=== PATIENT | female | born 1980 | race Caucasian/White ===

== ENCOUNTER 2018-01-06 17:07 | Emergency (ER) | payer BC ==
[2018-01-06] MEDS ORDERED: KETOROLAC TROMETHAMINE 60 MG/2 ML SDV IM ONE ×2 (18:11→21:00)
--- NOTE | 2018-01-06 18:11 | ER Document Report ---
ED Medical Screen (RME) - General Chief Complaint: Abdominal Pain Stated Complaint: ABDOMINAL PAIN Time Seen by Provider: 01/06/18 18:02 Notes: 37-year-old female patient with onset yesterday afternoon about 4 PM right lower quadrant abdominal pain. She also started her period yesterday 3 days late. There is been no bleeding today and that has never occurred with a period in the past. She did go to an urgent care last night and had a negative urine test. She got a shot of Toradol which gave her relief and she went home to bed. She woke up during the night with pain when the Toradol wore off. She did go to see her [employer] doctors today who did an ultrasound of her uterus and ovaries. They then sent her to the emergency room to rule out appendicitis. Brief exam shows some right lower quadrant tenderness. Right CVA percussion tenderness is present. There is no pain noted when the patient goes up on her toes and does a heel drop. There is no past history of kidney stones, but her father gets kidney stones frequently. There is been no fever. I have greeted and performed a rapid initial assessment of this patient. A comprehensive ED assessment and evaluation of the patient, analysis of test results and completion of the medical decision making process will be conducted by additional ED providers. TRAVEL OUTSIDE OF THE [place] IN LAST 30 DAYS: No - Related Data Allergies/Adverse Reactions: No Known Allergies Allergy (Unverified 02/15/12 14:22) Past Medical History - Social History Chew tobacco use (# tins/day): No Frequency of alcohol use: Occasional Drug Abuse: None Renal/ Medical History: Denies: Hx Peritoneal Dialysis Past Surgical History: Reports: Hx Section Physical Exam - Vital signs Vitals: Temp Pulse Resp BP Pulse Ox 98.0 F 94 16 145/97 H 98 01/06/18 17:11 01/06/18 17:11 01/06/18 17:11 01/06/18 17:11 01/06/18 17:11 Course - Vital Signs Vital signs: Temp Pulse Resp BP Pulse Ox 98.0 F 94 16 145/97 H 98 01/06/18 17:11 01/06/18 17:11 01/06/18 17:11 01/06/18 17:11 01/06/18 17:11 Doctor's Discharge - Discharge Referrals: LOCALMD,NO [Primary Care Provider] - Follow up as needed
[2018-01-06 18:38] LABS: ABSOLUTE MONOCYTES (AUTO) 0.7 10^3/uL (0.1-1.4); ABSOLUTE NEUT (AUTO) 5.8 10^3/uL (1.7-8.2); BASOPHILS % (AUTO) 0.5 % (0-2); EOSINOPHILS % (AUTO) 0.4 % (0-6); HEMATOCRIT 44.3 % (36.0-47.0); HEMOGLOBIN 15.3 g/dL (12.0-15.5); LYMPHOCYTES % (AUTO) 22.9 % (13-45); MEAN CORPUSCULAR HEMOGLOBIN 30.2 pg (27.0-33.4); MEAN CORPUSCULAR HGB CONC 34.5 g/dL (32.0-36.0); MEAN CORPUSCULAR VOLUME 88 fl (80-97); MONOCYTES % (AUTO) 8.6 % (3-13); PLATELET COUNT 269 10^3/uL (150-450); RED BLOOD COUNT 5.05 10^6/uL (3.72-5.28); RED CELL DISTRIBUTION WIDTH 13.2 % (11.5-14.0); SEGMENTED NEUTROPHILS % (AUTO) 67.6 % (42-78); TOTAL CELLS COUNTED % (AUTO) 100 %; WHITE BLOOD COUNT 8.6 10^3/uL (4.0-10.5)
[2018-01-06 18:47] LABS: APPEARANCE,URINE CLEAR; BILIRUBIN,URINE NEGATIVE (NEGATIVE); COLOR,URINE YELLOW; GLUCOSE, URINE NEGATIVE (NEGATIVE); KETONES,URINE TRACE mg/dL (NEGATIVE); LEUKOCYTE ESTERASE,URINE NEGATIVE (NEGATIVE); NITRITE,URINE NEGATIVE (NEGATIVE); PROTEIN,URINE NEGATIVE (NEGATIVE); URINE SPECIFIC GRAVITY 1.008; UROBILINOGEN,URINE NEGATIVE mg/dL (<2.0)
[2018-01-06 18:54] LABS: ALANINE AMINOTRANSFERASE 63 U/L (9-52); ALBUMIN 4.2 g/dL (3.5-5.0); ALKALINE PHOSPHATASE 97 U/L (38-126); ANION GAP 12 (5-19); ASPARTATE AMINO TRANSFERASE 49 U/L (14-36); BILIRUBIN,DIRECT 0.3 mg/dL (0.0-0.4); BILIRUBIN,TOTAL 0.9 mg/dL (0.2-1.3); BLOOD UREA NITROGEN 17 mg/dL (7-20); CALCIUM 9.6 mg/dL (8.4-10.2); CARBON DIOXIDE 25 mmol/L (22-30); CHLORIDE 106 mmol/L (98-107); GLUCOSE 91 mg/dL (75-110); POTASSIUM 4.5 mmol/L (3.6-5.0); SODIUM 143.2 mmol/L (137-145); TOTAL PROTEIN 6.9 g/dL (6.3-8.2)
[2018-01-06] MEDS ORDERED: NORMAL SALINE 1000 ML 1,000 ML IV ONE (20:51)
[2018-01-06] MEDS ORDERED: ONDANSETRON HCL INJ/PF 4 MG/2 ML SDV IV ONE (20:51)
[2018-01-06] MEDS ORDERED: KETOROLAC TROMETHAMINE INJ/PF 30 MG/1 ML SDV IV ONE (20:51)
--- NOTE | 2018-01-06 20:52 | ER Document Report ---
ED GI/ - General Chief Complaint: Abdominal Pain Stated Complaint: ABDOMINAL PAIN Time Seen by Provider: 01/06/18 18:02 Mode of Arrival: Ambulatory Information source: Patient TRAVEL OUTSIDE OF THE [place] IN LAST 30 DAYS: No - HPI Patient complains to provider of: Abdominal pain Onset: Yesterday Timing/Duration: Gradual, Persistent Quality of pain: Achy, Pressure Severity at maximum: Moderate Severity in ED: Moderate Pain Level: 3 Location: RLQ, Suprapubic Vaginal bleeding (Compared to normal period): Tobacco Sweeper Associated symptoms: Nausea Exacerbated by: Denies Relieved by: Denies Similar symptoms previously: No Recently seen / treated by doctor: Yes Notes: 01/07/18 00:01 Patient is a 37-year-old female presenting to the emergency room today for 2- day history of lower abdominal pain with nausea and decreased appetite, she was seen at urgent care yesterday, had a Toradol injection which made her feel better but her symptoms returned sometime in the middle of the night, she then went to [facility] today thinking that it may be related to her ovaries, reportedly she had a ultrasound performed in their office which showed normal ovaries and she was advised to come to the emergency room for further evaluation and treatment, patient reports a normal bowel movement today , denies dysuria or hematuria, she did start her period yesterday which was on time however her bleeding lasted for just 1 day and has ceased since then which is unusual for her, she denies any vaginal discharge - Related Data Allergies/Adverse Reactions: No Known Allergies Allergy (Unverified 02/15/12 14:22) Past Medical History - General Information source: Patient - Social History Smoking Status: Never Smoker Chew tobacco use (# tins/day): No Frequency of alcohol use: Occasional Drug Abuse: None Family History: None Patient has suicidal ideation: No Patient has homicidal ideation: No Renal/ Medical History: Denies: Hx Peritoneal Dialysis Past Surgical History: Reports: Hx Section Review of Systems - Review of Systems Constitutional: No symptoms reported EENT: No symptoms reported Cardiovascular: No symptoms reported Respiratory: No symptoms reported Gastrointestinal: See HPI Genitourinary: No symptoms reported Female Genitourinary: No symptoms reported Musculoskeletal: No symptoms reported Skin: No symptoms reported Hematologic/Lymphatic: No symptoms reported Neurological/Psychological: No symptoms reported -: Yes All other systems reviewed and negative Physical Exam - Vital signs Vitals: Temp Pulse Resp BP Pulse Ox 98.0 F 94 16 145/97 H 98 01/06/18 17:11 01/06/18 17:11 01/06/18 17:11 01/06/18 17:11 01/06/18 17:11 Interpretation: Normal - General General appearance: Appears well, Alert - HEENT Head: Normocephalic, Atraumatic Eyes: Normal Pupils: PERRL - Respiratory Respiratory status: No respiratory distress Chest status: Nontender Breath sounds: Normal Chest palpation: Normal - Cardiovascular Rhythm: Regular Heart sounds: Normal auscultation Murmur: No - Abdominal Inspection: Normal Distension: No distension Bowel sounds: Normal Tenderness: Tender - Right lower quadrant tenderness, suprapubic tenderness Organomegaly: No organomegaly - Genitourinary External exam: Normal Speculum exam: Normal Vaginal bleeding: Mild Bimanuel exam: Cervical motion tender - Mild - Back Back: Normal, Nontender - Extremities General upper extremity: Normal inspection, Nontender, Normal color, Normal ROM , Normal temperature General lower extremity: Normal inspection, Nontender, Normal color, Normal ROM , Normal temperature, Normal weight bearing. No: Thea's sign - Neurological Neuro grossly intact: Yes Cognition: Normal Orientation: AAOx4 Hannacroix Coma Scale Eye Opening: Spontaneous Hannacroix Coma Scale Verbal: Oriented Sebastian Coma Scale Motor: Obeys Commands Sebastian Coma Scale Total: 15 Speech: Normal Motor strength normal: LUE, RUE, LLE, RLE Sensory: Normal - Psychological Associated symptoms: Normal affect, Normal mood - Skin Skin Temperature: Warm Skin Moisture: Dry Skin Color: Normal Course - Re-evaluation Re-evalutation: 01/07/18 00:03 Lab and imaging findings discussed with patient at bedside, lab findings unremarkable except for very mild liver enzyme elevation, CT scan shows some inflammation in the pelvis, pelvic exam was performed which shows some trace dark brown blood in the vaginal vault, and mild uterine tenderness on exam, no abnormal discharge otherwise, no adnexal tenderness, patient was advised of her findings, recommended close follow-up with primary care or return if any worsening of symptoms over the next 2-3 days, patient acknowledges understanding and agreement with this plan - Vital Signs Vital signs: Temp Pulse Resp BP Pulse Ox 98.0 F 94 16 145/97 H 98 01/06/18 17:11 01/06/18 17:11 01/06/18 17:11 01/06/18 17:11 01/06/18 17:11 - Laboratory Result Diagrams: 01/06/18 18:25 01/06/18 18:25 Laboratory results interpreted by me: 01/06/18 01/06/18 18:00 18:25 AST 49 H ALT 63 H Urine Ketones TRACE H Urine Blood SMALL H - Diagnostic Test Radiology reviewed: Image reviewed, Reports reviewed Discharge - Discharge Clinical Impression: Abdominal pain Qualifiers: Abdominal location: lower abdomen, unspecified Qualified Code(s): R10.30 - Lower abdominal pain, unspecified Condition: Stable Disposition: HOME, SELF-CARE Instructions: Abdominal Pain ([facility]) Additional Instructions: Follow up with your primary care provider in one to 2 days. Return to the emergency room immediately if symptoms worsen or any additional concerns. Referrals: LOCALMD,NO [NO LOCAL MD] - Follow up as needed
--- NOTE | 2018-01-06 22:55 | RADIOLOGY REPORT (SQ) ---
EXAM DESCRIPTION: CT ABDOMEN PELVIS WITH IV CONTRAST COMPLETED DATE/TME: 01/06/2018 20:51 CLINICAL HISTORY: 37 years, Female, rlq pain COMPARISON: None. TECHNIQUE: 432 Images stored on PACS. All CT scanners at this facility use dose modulation, iterative reconstruction, and/or weight based dosing when appropriate to reduce radiation dose to as low as reasonably achievable (ALARA). [facility]: Dose Right [facility]: CareDose [facility]: Dose Right [facility]: Teradose 4D [facility]: Revision3 LIMITATIONS: None. FINDINGS: Limited evaluation of the lung bases is unremarkable. Osseous structures are grossly intact. Fatty infiltrative change to the liver. The spleen, adrenal glands, pancreas is unremarkable. The gallbladder is present. There is no definitive hydronephrosis, however there is nonspecific perinephric inflammatory changes bilaterally which could reflect an inflammatory or infectious process. Correlate with renal function and urinalysis. No evidence for bowel obstruction. There are also some minor inflammatory changes surrounding the uterus within the pelvis. Correlate for the possibility of pelvic inflammatory disease. Normal appendix. IMPRESSION: Mild perinephric inflammatory changes are suggested bilaterally. An inflammatory or infectious process should be considered. Correlate with renal function and urinalysis. There is also minor inflammatory changes within the pelvis. Correlate for the possibility of pelvic inflammatory disease. Normal appendix. Fatty infiltrative change to the liver. TECHNICAL DOCUMENTATION: Quality ID # [id number]: Final reports with documentation of one or more dose reduction techniques (e.g., Automated exposure control, adjustment of the mA and/or kV according to patient size, use of iterative reconstruction technique) 2010 [employer]- All Rights Reserved
[2018-01-07 00:03] VITALS: BP 139/88
[2018-01-07 00:04] LABS: BACTERIA (WET MOUNT) 3+ BACTERIA SEEN; EPITHELIALS (WET MOUNT) 3+ EPITHELIALS SEEN; RBCS (WET MOUNT) RARE RBCS SEEN; T.VAGINALIS (WET MOUNT) NO TRICHOMONAS SEEN; WBCS (WET MOUNT) NO WBCS SEEN; YEAST (WET MOUNT) NO YEAST SEEN
[2018-01-07 01:25] LABS: CHLAM PCR NOT DETECTED (NOT DETECT); GON PCR NOT DETECTED (NOT DETECT)
== END 2018-01-07 00:05 | disposition home or self-care (01) ==
LOC: ER 17:07
DX: N73.9 Female pelvic inflammatory disease, unspecified (principal); R10.31 Right lower quadrant pain; R11.0 Nausea; R63.0 Anorexia; R74.8 Abnormal levels of other serum enzymes
CPT/HCPCS: 99284; 96361; 96374; 96375; 36415; 87210; 84703; 85025; 80053; 81001; 87491; 87591; 74177; J1885; J2405; J7030

== ENCOUNTER 2019-11-12 05:25 | Day surgery (SDC) | payer BC, OTHER ==
[2019-11-06 12:28] LABS: HEMATOCRIT 46.6 % (36.0-47.0); HEMOGLOBIN 15.8 g/dL (12.0-15.5); MEAN CORPUSCULAR HEMOGLOBIN 29.7 pg (27.0-33.4); MEAN CORPUSCULAR VOLUME 87 fl (80-97); PLATELET COUNT 270 10^3/uL (150-450); RED BLOOD COUNT 5.33 10^6/uL (3.72-5.28); WHITE BLOOD COUNT 8.4 10^3/uL (4.0-10.5)
--- NOTE | 2019-11-06 12:28 | RADIOLOGY REPORT (SQ) ---
EXAM DESCRIPTION: CHEST PA/LATERAL IMAGES COMPLETED DATE/TIME: 11/06/2019 11:24 am REASON FOR STUDY: PRE-OP COMPARISON: None. EXAM PARAMETERS: NUMBER OF VIEWS: two views TECHNIQUE: Digital Frontal and Lateral radiographic views of the chest acquired. RADIATION DOSE: NA LIMITATIONS: none FINDINGS: LUNGS AND PLEURA: No opacities, masses or pneumothorax. No pleural effusion. MEDIASTINUM AND HILAR STRUCTURES: No masses or contour abnormalities. HEART AND VASCULAR STRUCTURES: Heart normal size. No evidence for failure. BONES: No acute findings. HARDWARE: None in the chest. OTHER: No other significant finding. IMPRESSION: NO SIGNIFICANT RADIOGRAPHIC FINDING IN THE CHEST. TECHNICAL DOCUMENTATION: JOB ID: [id number] 2010 [employer]- All Rights Reserved Reading location - IP/workstation name: [email or web address]
[2019-11-06 12:42] LABS: APPEARANCE,URINE SLIGHTLY-CLOUDY; BILIRUBIN,URINE NEGATIVE (NEGATIVE); COLOR,URINE YELLOW; GLUCOSE, URINE NEGATIVE (NEGATIVE); KETONES,URINE NEGATIVE (NEGATIVE); LEUKOCYTE ESTERASE,URINE NEGATIVE (NEGATIVE); NITRITE,URINE NEGATIVE (NEGATIVE); PROTEIN,URINE NEGATIVE (NEGATIVE); URINE SPECIFIC GRAVITY 1.021; UROBILINOGEN,URINE NEGATIVE mg/dL (<2.0)
[2019-11-06 12:49] LABS: ALBUMIN 4.8 g/dL (3.5-5.0); ALKALINE PHOSPHATASE 105 U/L (38-126); ANION GAP 14 (5-19); ASPARTATE AMINO TRANSFERASE 50 U/L (14-36); BILIRUBIN,DIRECT 0.3 mg/dL (0.0-0.4); BILIRUBIN,TOTAL 0.6 mg/dL (0.2-1.3); BLOOD UREA NITROGEN 15 mg/dL (7-20); CALCIUM 9.8 mg/dL (8.4-10.2); CARBON DIOXIDE 21 mmol/L (22-30); CHLORIDE 105 mmol/L (98-107); GLUCOSE 87 mg/dL (75-110); POTASSIUM 4.7 mmol/L (3.6-5.0); TOTAL PROTEIN 7.6 g/dL (6.3-8.2)
--- NOTE | 2019-11-06 21:37 | EKG REPORT ---
SEVERITY:- NORMAL ECG - SINUS RHYTHM : Confirmed by: Maria Guadalupe Edward MD 06-Nov-2019 21:36:35
[~2019-11-12 05:25] MED LIST: CEFAZOLIN 1 GM/D5W RTU 1 GM/50 ML RTUPB IV ONE; CEFAZOLIN 1 GM/D5W RTU 1 GM/50 ML RTUPB IV PRN; LIDOCAINE 0.5% INJ-PF (5 MG/ML) 50 ML SDV SUBCUT PRN
[2019-11-12] MEDS ORDERED: FENTANYL CITRATE INJ/PF 250 MCG/5 ML AMPULE ONE (06:29)
[2019-11-12] MEDS ORDERED: FENTANYL CITRATE INJ/PF 100 MCG/2 ML AMPUL ONE (06:29)
[2019-11-12] MEDS ORDERED: MIDAZOLAM 2 MG/2 ML INJ ONE (06:29)
[2019-11-12] MEDS ORDERED: PROPOFOL INJ 200 MG/20 ML VIAL IV ONE (06:30)
[2019-11-12] MEDS ORDERED: MORPHINE SULFATE 10 MG/ML INJ ONE (06:30)
[2019-11-12] MEDS ORDERED: FENTANYL CITRATE INJ/PF 100 MCG/2 ML AMPUL IV PRN ×3 (08:29)
[2019-11-12] MEDS ORDERED: PROMETHAZINE HCL INJ 25 MG/1 ML VIAL IV PRN ×3 (08:29→10:10)
[2019-11-12] MEDS ORDERED: OXYCODONE-ACETAMINOPHEN 5-325 MG TABLET PO PRN ×4 (08:29→10:10)
[2019-11-12] MEDS ORDERED: MORPHINE SULFATE 10 MG/ML INJ IV PRN ×2 (08:29→10:10)
[2019-11-12] MEDS ORDERED: DIPHENHYDRAMINE HCL 50 MG/ML VIAL IV PRN (08:29)
[2019-11-12] MEDS ORDERED: MEPERIDINE HCL/PF INJ 25 MG/1 ML DISP.SYRIN IV PRN (08:29)
[2019-11-12] MEDS ORDERED: SUGAMMADEX SODIUM 200 MG/2 ML SDV IV ONE (09:51)
[2019-11-12] MEDS ORDERED: MEASLES,MUMPS&RUBELLA VACC/PF 0.5 ML VIAL SUBCUT PRN (10:10)
[2019-11-12] MEDS ORDERED: DIPH/PERTUSS(ACELL)/TETANUS VAC/PF 0.5 ML SYR (>=10YO) IM PRN (10:10)
[2019-11-12] MEDS ORDERED: ACETAMINOPHEN 1,000 MG/100 ML RTUPB IV PRN (10:10)
[2019-11-12] MEDS ORDERED: SIMETHICONE 80 MG TAB.CHEW PO PRN (10:10)
[2019-11-12] MEDS ORDERED: ACETAMINOPHEN 325 MG TABLET PO PRN (10:10)
[2019-11-12] MEDS ORDERED: KETOROLAC TROMETHAMINE INJ/PF 30 MG/1 ML SDV ONE (10:18)
[2019-11-12] MEDS: FENTANYL CITRATE INJ/PF 100 MCG/2 ML AMPUL ONE ×2 (10:19→10:24)
--- NOTE | 2019-11-12 10:30 | Operative Report ---
Operative Report DATE OF SURGERY: 11/12/19 PREOPERATIVE DIAGNOSIS: Abnormal uterine bleeding, chronic pelvic pain, pelvic adhesive disease POSTOPERATIVE DIAGNOSIS: Abnormal uterine bleeding, chronic pelvic pain, pelvic adhesive disease, endometriosis, left ovarian endometrioma OPERATION: Assisted total laparoscopic hysterectomy, left salpingo-oophorectomy, right salpingectomy, lysis of adhesions SURGEON: BRETT SHUKLA 1ST PLATE GRINDER: SABINO BALDWIN 2ND Elastic Assembler: EMELY YODER ANESTHESIA: GA TISSUE REMOVED OR ALTERED: Uterus, cervix, left adnexa, right fallopian tube COMPLICATIONS: None none ESTIMATED BLOOD LOSS: 300 cc INTRAOPERATIVE FINDINGS: Cervix is very high in the vaginal canal difficult to grasp for manipulator placement, dense adhesions of the uterus to the anterior abdominal wall adhesions of the bladder to the lower uterine segment dense adhe sions of the left adnexa to the pelvic sidewall, left chocolate cyst consistent with an endometrioma, several gunpowder lesions in the pelvic sidewall consistent with endometriosis, right ovary was lightly adhesed to the posterior uterus PROCEDURE: Patient was taken to the operating room prepared and draped in normal sterile fashion in dorsolithotomy position. Under sterile conditions a Nicole catheter was placed to gravity. Speculum was placed into the vagina and the cervix was located with a great deal of difficulty. Cervix was superior and flexed anterior. Once the cervix was located the cervix was grasped with a single tooth tenaculum. Dilation proved to be very diffucult but I was able to place the medium v care manipulator into cervixcal canal and assured that the v care cup was covering the cervix. gloves were changed and attention was turned to the upper portion of the case. A 2-1/2 cm umbilical skin incision was made 11 blade and this was carried through to the underlying layer of fascia with the same 11 blade. It was grasped to Janna's acted with Baker's. Peritoneal cavity was entered bluntly. A GelPort was placed in a normal fashion the camera port and air seal in the appropriate locations. Mejia was then inflated with approximately 2 L of CO2 gas. The camera was then introduced into the peritoneal cavity through the camera port and the patient was placed in steep Trendelenburg. The above findings were noted. Under direct visualization two 5 mm ports were placed approximately 10 cm on either side of the umbilicus. Atraumatic grasper was introduced and the omental adhesions were taken down bluntly from the anterior abdominal wall. the robot was then docked with the vessel sealer placed on the patient's left and the monopolar scissors placed placed on the patient's right. I then unscrubbed and set at the robotic console beginning with the lesions of the lower uterine segment to the descending colon were taken down with sharp dissection of the monopolar scissors . The left adnexa was determined to contain a large chocolate endometrioma. Due to the level of pelvic adhesions to the anterior to the pelvic sidewall and the pres ence of the endometrioma it was decided that this ovary should be removed for patient's benefit . The adhesions of the ovary to the pelvic sidewall were teased away with monopolar scissors coagulating as needed for hemostasis taking care to stay out of the retroperitoneal space . IP ligament was freed and the ovary was transected at the IP ligament utilizing the vessel sealer. The uterine artery was skeletonized using sharp and blunt dissection and ligated using the vessel sealer down to the level of the external cervical os. The adhesions of the uterus to the anterior abdominal wall were then transected utilizing the monopolar scissors staying high and away from bladder flap . Turned our attention to the right adnexa . The fallopian tube on this side was easily located and elevated and transected from the right ovary following the mesosalpinx and using monopolar scissors. Fallopian tube was ligated at the uterine fundus using the vessel sealer. the utero-ovarian ligament was t ransected using the vessel sealer. The adhesions of the right ovary to the posterior aspect of the uterine body were transected using monopolar scissors and blunt dissection. the Uterine artery was then transected using the vessel sealer and skeletonized using blunt dissection. The vessel sealer was again used to completely transect the uterine artery down to the level of the external cervical os. The bladder flap was completed using similar sharp and blunt dissection. These adhesions were taken down with the monopolar scissors and blunt dissection until the V care cup could be located through the vaginal mucosa. Then turned our attention to the left adnexa once more and continued skeletonization of the uterine artery until the tissue was dissected away and the need mucosa revealed the uterine manipulator. once the bladder was felt to be adequately away from the lower uterine segment, the colpotomy was begun on the anterior aspect of the cervix following the outline of the V care cup mucosa. The cup was followed in a circumferential fashion completely around the cervix estimate was completely freed. The specimen was then removed through the vaginal defect. The instruments were then changed to a Stanley needle motor driver and pro-grasp. AV lock needle was introduced through the assistance port. The V lock needle was used to close the vaginal cuff and hemostasis. The needle was then r emoved through the assistance port. The peritoneal cavity was carefully inspected there was no signs of hydroureter however uterine peristalsis was not noted through the tissues due to the level of the adhesive disease of the patient. There was a small amount of capillary oozing noted at the level of the left IP ligament. Carefully coagulated with monopolar scissors again taking care to stay out of the retroperitoneal space. Once we had the oozing somewhat under control there was FloSeal placed in this area for additional hemostasis prophylaxis. the robot was then undocked. The fascia was closed at the umbilical skin incision with 0 Vicryl 3 skin incisions were closed using 4-0 Vicryl. Sponge lap and needle counts were correct x2 and the patient was taken to recovery in stable condition.
[2019-11-12] MEDS ORDERED: OXYCODONE-ACETAMINOPHEN 5-325 MG TABLET ONE (10:39)
[2019-11-12] MEDS ORDERED: NORMAL SALINE INJ/PF 0.9% 10 ML SDV ONE (11:39)
[2019-11-12] MEDS ORDERED: PHENYLEPHRINE HCL INJ/PF 10 MG/1 ML SDV ONE (11:39)
[2019-11-12] MEDS ORDERED: ROCURONIUM BROMIDE INJ 50 MG/5 ML VIAL IV ONE (11:39)
[2019-11-12] MEDS ORDERED: DEXAMETHASONE SOD PHOSPHATE INJ 4 MG/1 ML VIAL ONE (11:39)
[2019-11-12] MEDS ORDERED: ONDANSETRON HCL INJ/PF 4 MG/2 ML SDV ONE (11:39)
[2019-11-12] MEDS ORDERED: ACETAMINOPHEN 1,000 MG/100 ML RTUPB IV ONE (14:48)
[2019-11-12] MEDS: RINGERS SOLUTION,LACTATED 1,000 ML IV PRN (14:55)
[2019-11-12] MEDS ORDERED: DOCUSATE SODIUM 100 MG CAPSULE PO SCH (18:00)
[2019-11-12] MEDS: KETOROLAC TROMETHAMINE INJ/PF 30 MG/1 ML SDV IV SCH (18:00)
[2019-11-13] MEDS: KETOROLAC TROMETHAMINE INJ/PF 30 MG/1 ML SDV IV SCH (01:46)
[2019-11-13] MEDS: RINGERS SOLUTION,LACTATED 1,000 ML IV PRN (01:50)
[2019-11-13 06:45] LABS: HEMATOCRIT 40.1 % (36.0-47.0); HEMOGLOBIN 13.9 g/dL (12.0-15.5); MEAN CORPUSCULAR HEMOGLOBIN 30.3 pg (27.0-33.4); MEAN CORPUSCULAR HGB CONC 34.7 g/dL (32.0-36.0); MEAN CORPUSCULAR VOLUME 87 fl (80-97); PLATELET COUNT 238 10^3/uL (150-450); RED BLOOD COUNT 4.59 10^6/uL (3.72-5.28); RED CELL DISTRIBUTION WIDTH 13.8 % (11.5-14.0); WHITE BLOOD COUNT 12.3 10^3/uL (4.0-10.5)
--- NOTE | 2019-11-13 07:38 | PDOC DISCHARGE SUMMARY ---
Impression - Admit/DC Date/PCP Admission Date/Primary Care Provider: JESUS CHASE DO Discharge Date: 11/13/19 - Discharge Diagnosis (1) Endometriosis determined by laparoscopy Is this a current diagnosis for this admission?: Yes (2) Abnormal uterine bleeding Is this a current diagnosis for this admission?: Yes (3) Pelvic adhesive disease Is this a current diagnosis for this admission?: Yes (4) Pelvic pain Is this a current diagnosis for this admission?: Yes - Assessment Summary: patient underwent an RATLH w/ b/l salpingectomy with significant lysis of adhesions. She has had an unremarkable post operative course. She is voiding normally and tolerating a regular diet. - Additional Information Resuscitation Status: Full Code Discharge Diet: As Tolerated Discharge Activity: Balance Activity w/Rest, No Driving, No Lifting Over 10 Pounds, No Lifting/Push/Pulling, Pelvic Rest, No tub bath, Walk Frequently Referrals: JESUS CHASE DO [Primary Care Provider] - Prescriptions: Oxycodone HCl/Acetaminophen [Percocet 5-325 mg Tablet] 1 tab PO Q4HP PRN #30 tablet PRN Reason: Docusate Sodium [Colace 100 mg Capsule] 100 mg PO BID #60 capsule Ibuprofen [Motrin 800 mg Tablet] 800 mg PO Q8H #60 tablet Home Medications: Citalopram Hydrobromide [Celexa 20 Mg Tablet] 20 mg PO DAILY 11/22/12 Lisinopril [Prinivil] 10 mg PO ASDIR PRN 11/06/19 Metoprolol Tartrate [Lopressor 50 mg Tablet] 50 mg PO DAILY 11/06/19 Docusate Sodium [Colace 100 mg Capsule] 100 mg PO BID #60 capsule 11/13/19 Ibuprofen [Motrin 800 mg Tablet] 800 mg PO Q8H #60 tablet 11/13/19 Oxycodone HCl/Acetaminophen [Percocet 5-325 mg Tablet] 1 tab PO Q4HP PRN #30 tablet 11/13/19 History of Present Illiness History of Present Illness: FAIZA MIX is a 39 year old female Physical Exam - Physical Exam Vital Signs: Temp Pulse Resp BP Pulse Ox 98.2 F 83 16 128/71 H 93 11/12/19 23:48 11/12/19 23:48 11/12/19 23:48 11/12/19 23:48 11/12/19 23:48 Intake & Output 11/12/19 11/13/19 11/14/19 06:59 06:59 06:59 Intake Total 0 3300 Output Total 750 Balance 0 2550 Weight 102.51 kg Results Laboratory Results: WBC 12.3 10^3/uL (4.0-10.5) H 11/13/19 06:32 RBC 4.59 10^6/uL (3.72-5.28) 11/13/19 06:32 Hgb 13.9 g/dL (12.0-15.5) 11/13/19 06:32 Hct 40.1 % (36.0-47.0) 11/13/19 06:32 MCV 87 fl (80-97) 11/13/19 06:32 MCH 30.3 pg (27.0-33.4) 11/13/19 06:32 MCHC 34.7 g/dL (32.0-36.0) 11/13/19 06:32 RDW 13.8 % (11.5-14.0) 11/13/19 06:32 Plt Count 238 10^3/uL (150-450) 11/13/19 06:32 Sodium 139.5 mmol/L (137-145) 11/06/19 11:03 Potassium 4.7 mmol/L (3.6-5.0) 11/06/19 11:03 Chloride 105 mmol/L (98-107) 11/06/19 11:03 Carbon Dioxide 21 mmol/L (22-30) L 11/06/19 11:03 Anion Gap 14 (5-19) 11/06/19 11:03 BUN 15 mg/dL (7-20) 11/06/19 11:03 Creatinine 0.63 mg/dL (0.52-1.25) 11/06/19 11:03 Est GFR ( Amer) > 60 (>60) 11/06/19 11:03 Est GFR (MDRD) Non-Af > 60 (>60) 11/06/19 11:03 Glucose 87 mg/dL (75-110) 11/06/19 11:03 Calcium 9.8 mg/dL (8.4-10.2) 11/06/19 11:03 Total Bilirubin 0.6 mg/dL (0.2-1.3) 11/06/19 11:03 Direct Bilirubin 0.3 mg/dL (0.0-0.4) 11/06/19 11:03 Neonat Total Bilirubin Not Reportable 11/06/19 11:03 Neonat Direct Bilirubin Not Reportable 11/06/19 11:03 Neonat Indirect Bili Not Reportable 11/06/19 11:03 AST 50 U/L (14-36) H 11/06/19 11:03 ALT 85 U/L (<35) H 11/06/19 11:03 Alkaline Phosphatase 105 U/L (38-126) 11/06/19 11:03 Total Protein 7.6 g/dL (6.3-8.2) 11/06/19 11:03 Albumin 4.8 g/dL (3.5-5.0) 11/06/19 11:03 Urine Color YELLOW 11/06/19 10:50 Urine Appearance SLIGHTLY-CLOUDY 11/06/19 10:50 Urine pH 6.0 (5.0-9.0) 11/06/19 10:50 Ur Specific [place] 1.021 11/06/19 10:50 Urine Protein NEGATIVE mg/dL (NEGATIVE) 11/06/19 10:50 Urine Glucose (UA) NEGATIVE mg/dL (NEGATIVE) 11/06/19 10:50 Urine Ketones NEGATIVE mg/dL (NEGATIVE) 11/06/19 10:50 Urine Blood NEGATIVE (NEGATIVE) 11/06/19 10:50 Urine Nitrite NEGATIVE (NEGATIVE) 11/06/19 10:50 Urine Bilirubin NEGATIVE (NEGATIVE) 11/06/19 10:50 Urine Urobilinogen NEGATIVE mg/dL (<2.0) 11/06/19 10:50 Ur Leukocyte Esterase NEGATIVE (NEGATIVE) 11/06/19 10:50 Urine WBC (Auto) 1 /HPF 11/06/19 10:50 Urine RBC (Auto) 0 /HPF 11/06/19 10:50 Urine Bacteria (Auto) TRACE /HPF 11/06/19 10:50 Squamous Epi Cells Auto 5 /HPF 11/06/19 10:50 Urine Mucus (Auto) RARE /LPF 11/06/19 10:50 Urine Ascorbic Acid NEGATIVE (NEGATIVE) 11/06/19 10:50 Urine HCG, Qual NEGATIVE (NEGATIVE) 11/12/19 05:30 COVID-19 Source See comment 11/06/19 10:53 COVID-19 (MELANIA) Not Detected (Not Detect) 11/06/19 10:53 Blood Type O NEGATIVE 11/06/19 11:03 Antibody Screen NEGATIVE 11/06/19 11:03 Impressions: Chest X-Ray 11/06/19 00:00 IMPRESSION: NO SIGNIFICANT RADIOGRAPHIC FINDING IN THE CHEST. Stroke Is this a Stroke Patient?: No Acute Heart Failure Is this a Heart Failure Patient?: No
[2019-11-13 08:10] VITALS: BP 143/83
[2019-11-13] MEDS ORDERED: IBUPROFEN 800 MG TABLET PO SCH (12:00)
[2019-11-14] MEDS ORDERED: INFLUENZA QUAD (6MOS+) 2020-21 VAC 0.5 ML SYR IM ONE (08:00)
== END 2019-11-13 09:42 | disposition home or self-care (01) ==
LOC: OROUT 05:25 → 2N 12:19 → OROUT 11-13 09:42
PROVIDERS: ATTEND Obstetrics & Gynecology
DX: N93.8 Other specified abnormal uterine and vaginal bleeding (principal); N80.2 Endometriosis of fallopian tube; N73.6 Female pelvic peritoneal adhesions (postinfective); N72 Inflammatory disease of cervix uteri; N87.9 Dysplasia of cervix uteri, unspecified; N83.12 Corpus luteum cyst of left ovary; N80.1 Endometriosis of ovary; D25.2 Subserosal leiomyoma of uterus; G89.29 Other chronic pain; R10.2 Pelvic and perineal pain; N92.1 Excessive and frequent menstruation with irregular cycle; I10 Essential (primary) hypertension; F32.9 Major depressive disorder, single episode, unspecified; F17.210 Nicotine dependence, cigarettes, uncomplicated; Z03.818 Encounter for observation for suspected exposure to other biological agents ruled out
CPT/HCPCS: 93005; 86900; 86901; 36415 ×2; 86850; 85027 ×2; 87635; 81025; 80053; 81001; 88307 ×2; 71046; 94799; 93010; 00840; 58571; 49329; C1758; A4649; J2250; J0690; J3490 ×3; J1100; J3010 ×2; J1885 ×2; J2270; J2370; J2405; J7120 ×2; J2704; J0131; C9803; 840

== ENCOUNTER 2020-01-05 15:54 | Emergency (ER) | payer OTHER ==
[2020-01-05 16:16] VITALS: BP 131/88
[2020-01-05] MEDS ORDERED: HYDROCODONE/ACETAMINOPHEN 10-325 MG TABLET PO ONE (17:32)
[2020-01-05] MEDS ORDERED: DIPH/PERTUSS(ACELL)/TETANUS VAC/PF 0.5 ML SYR (>=10YO) IM ONE (17:34)
--- NOTE | 2020-01-05 17:39 | ER Document Report ---
HPI - HPI Time Seen by Provider: 01/05/20 17:23 Pain Level: 5 Notes: 39-year-old female presents to the emergency room today by private vehicle for bilateral ankle pain after she fell out of the car because it was on a curb, denies injuring her wrist hands or any other part of her body except for her ankles. Denies head trauma or change in level consciousness. Reports pain is 5 out of 5. She does have some abrasions to her left ankle and right ankle. Unsure of her last tetanus. Bleeding is controlled. Unable to bear any weight to bilateral lower extremities. Reports she does have a wheelchair at home. States that she was teaching her daughter how to drive in her driveway when this happened. Denies any prior history of ankle sprains or fractures. Denies any numbness or tingling down bilateral lower extremities, weakness. Denies any chest pain, shortness of breath, nausea vomiting diarrhea. - CONSTITUTIONAL Constitutional: DENIES: Fever, Chills - REPRODUCTIVE LMP: hysterectomy Reproductive: DENIES: : - MUSCULOSKELETAL Musculoskeletal: REPORTS: Extremity pain - DERM Skin Color: Normal Past Medical History - General Information source: Patient - Social History Smoking Status: Current Every Day Smoker Chew tobacco use (# tins/day): No Frequency of alcohol use: Occasional Drug Abuse: None Family History: None Patient has homicidal ideation: No - Past Medical History Cardiac Medical History: Reports: Hx Hypertension - on meds Denies: Hx Coronary Artery Disease, Hx Heart Attack Pulmonary Medical History: Denies: Hx Asthma, Hx Bronchitis, Hx COPD, Hx Pneumonia Neurological Medical History: Denies: Hx Cerebrovascular Accident, Hx Seizures Renal/ Medical History: Denies: Hx Peritoneal Dialysis Musculoskeletal Medical History: Denies Hx Arthritis Psychiatric Medical History: Reports: Hx Depression Past Surgical History: Reports: Hx Section - x2, Hx Hysterectomy, Hx Tonsillectomy - Immunizations Hx Diphtheria, Pertussis, Tetanus Vaccination: Yes Vertical Provider Document - CONSTITUTIONAL Agree With Documented VS: Yes Exam Limitations: No Limitations General Appearance: WD/WN Notes: MEDICATIONS: I agree with the patient medications as charted by the RN. ALLERGIES: I agree with the allergies as charted by the RN. PAST MEDICAL HISTORY/PAST SURGICAL HISTORY: Reviewed and agree as charted by RN. SOCIAL HISTORY: Reviewed and agree as charted by RN. FAMILY HISTORY: No significant familial comorbid conditions directly related to patient complaint EXAM: Reviewed vital signs as charted by RN. PHYSICAL EXAMINATION: reviewed vital signs by RN GENERAL: Well-appearing, well-nourished and in no acute distress. HEAD: Atraumatic, normocephalic. EYES: Pupils equal round and reactive to light, extraocular movements intact, conjunctiva are normal. ENT: Nares patent, oropharynx clear without exudates. Moist mucous membranes. NECK: Normal range of motion, supple without lymphadenopathy LUNGS: Breath sounds clear to auscultation bilaterally and equal. No wheezes rales or rhonchi. HEART: Regular rate and rhythm without murmurs ABDOMEN: Soft, nontender, nondistended abdomen. No guarding, no rebound. No masses appreciated. Female : deferred Musculoskeletal: Normal range of motion, no pitting or edema. No cyanosis. left and right ankle with swelling, tenderness on lateral aspect of ankle. pain with inversion bilaterally. squeeze test negative bilaterally. dtr +2 BLE. Limited APROM. distal pulses + 2 BLE equally. Full motor and sensory function of bilateral lower extremities. noted open wounds or abrasion. Normal gait. No vascular compromise. Peroneal nerve is intact with strong eversion and plantar flexion. Negative anterior drawer test. muscle strength 5/5 in BLE equally. NEUROLOGICAL: Cranial nerves grossly intact. Normal speech, normal gait. Normal sensory, motor exams PSYCH: Normal mood, normal affect. SKIN: Warm, Dry, normal turgor, no rashes or lesions noted. - INFECTION CONTROL TRAVEL OUTSIDE OF THE [place] IN LAST 30 DAYS: No Course - Re-evaluation Re-evalutation: 01/05/20 17:39 Afebrile vital stable no distress. Nurses notes reviewed. X-ray of bilateral ankles show a left fibular fracture that is minimally displaced, will place patient in a short posterior splint for her left ankle and place her in an Aircast with her right ankle. Patient does have a wheelchair at home as well as crutches. Left ankle shows a sprain. Consent by patient given to place short posterior splint,. cms intact, sensory motor function intact in bilateral lower extremities prior to splint application fiberglass splint placed without incident. cms intact 20 minutes after splint application. Splint is in good alignment. Bilateral lower extremities with motor and sensory function intact 20 minutes after application. Pt stated that splint felt comfortable. Advised to not drive, drink or operate heavy machinery while taking medication as discussed sedation or impairment of cognitive function. Follow-up with internal corrosion specialist and primary care provider within the next 24 to 48 hours. Consider having your ankles crystal-rayed in 5 days if you are still experiencing the same amount of pain that you are having today. After performing a Medical Screening Examination, I estimate there is LOW risk for OPEN FRACTURE, COMPARTMENT SYNDROME, DEEP VENOUS THROMBOSIS, ACUTE TENDON RUPTURE, or NEUROVASCULAR INJURY thus I consider the discharge disposition reasonable. I have reevaluated this patient multiple times and no significant life threatening changes are noted. The patient and I have discussed the diagnosis and risks, and we agree with discharging home to closely follow-up with their primary doctor or the referral orthopedist with the understanding that symptoms and presentations can change. We also discussed returning to the Emergency Department immediately if new or worsening symptoms occur. We have discussed the symptoms which are most concerning (e.g., changing or worsening pain, numbness, weakness) that necessitate immediate return 01/05/20 19:53 - Vital Signs Vital signs: Temp Pulse Resp BP Pulse Ox 99.1 F 77 16 131/88 H 98 01/05/20 16:15 01/05/20 16:15 01/05/20 16:15 01/05/20 16:15 01/05/20 16:15 Discharge - Discharge Clinical Impression: Closed left ankle fracture Qualifiers: Encounter type: initial encounter Qualified Code(s): S82.892A - Other fracture of left lower leg, initial encounter for closed fracture Right ankle sprain Qualifiers: Encounter type: initial encounter Condition: Stable Disposition: HOME, SELF-CARE Instructions: Use of Crutches ([facility]), Ice & Elevation ([facility]), Oral Narcotic Medication ([facility]), Sprained Ankle ([facility]), Splint Precautions ([facility]), Fractured Metacarpal ([facility]), Ice Packs ([facility]), Ankle Stirrup Splint ([facility]), Splint Pending Casting ([facility]), Compartment Syndrome Cautions ([facility]) Additional Instructions: Your x-ray today is positive for a left fibular fracture on the left and it is negative for a fracture for the right ankle. You were placed in a fiberglass splint, which allows for swelling. Please follow-up with internal corrosion specialist within the next 24 to 48 hours to make an appointment for your casting. Discussed compartment syndrome and signs and symptoms to look for. If you are experiencing the pain that you are having today 5 days from now, as it is advised that you have your right ankle x-rayed again for occult fractures. Please do not drive, drink alcohol or operate machinery while taking medication as cause sedation or impairment of cognitive function. Follow-up with internal corrosion specialist and primary care provider within 24 to 48 hours as needed. You stated you do have a wheelchair at your house, I do recommend using this until your sprain is getting better. Please wear ankle Aircast as directed. Alternate between Tylenol and ibuprofen for pain control. Elevate your ankles higher than the level of the heart to help with swelling. Return immediately for any new or worsening symptoms. Follow up with primary care provider, call tomorrow to make followup appointment. Forms: Return to Work Referrals: JESUS CHASE DO [Primary Care Provider] - Follow up as needed SHAKIRA TABARES DO [ACTIVE STAFF] - Follow up in 3-5 days
--- NOTE | 2020-01-05 18:26 | RADIOLOGY REPORT (SQ) ---
EXAM DESCRIPTION: ANKLE BILATERAL 3 VIEWS MIN IMAGES COMPLETED DATE/TIME: 01/05/2020 5:07 pm REASON FOR STUDY: s/p fall, L ankle pop, R ankle swelling, + pain . COMPARISON: None. NUMBER OF VIEWS: Six views. TECHNIQUE: AP, lateral, and oblique without weight bearing radiographic images acquired of the right and left ankle. LIMITATIONS: None. FINDINGS: MINERALIZATION: Normal. RIGHT: BONES: No acute fracture or dislocation of the right ankle. Moderate ankle joint effusion. Normal a nkle mortise alignment. No significant osteophytes. JOINTS: Moderate ankle joint effusion. SOFT TISSUES: Mild soft tissue swelling lateral ankle. LEFT: BONES: There is an acute minimally displaced fracture of the distal left fibula. No definite fractur e of the distal tibia. Normal ankle mortise alignment. Small plantar calcaneal spur. No significan t osteophytes. JOINTS: Small ankle joint effusion. SOFT TISSUES: Soft tissue swelling medial and lateral ankle. OTHER: No other significant finding. IMPRESSION: 1. Acute minimally displaced fracture distal left fibula metaphysis. Small left ankle joint effusion and associated soft tissue swelling. 2. No acute fracture or dislocation of the right ankle. Moderate right ankle joint effusion and soft tissue swelling of the lateral soft tissues. TECHNICAL DOCUMENTATION: JOB ID: [id number] 2010 [employer]- All Rights Reserved Reading location - IP/workstation name: [email or web address]
[2020-01-05] MEDS ORDERED: HYDROCODONE/ACETAMINOPHEN 5-325 MG (6 TAB/ER DISP) PO PRN (19:38)
== END 2020-01-05 19:47 | disposition home or self-care (01) ==
LOC: ER 15:54
DX: S82.832A Other fracture of upper and lower end of left fibula, initial encounter for closed fracture (principal); S93.401A Sprain of unspecified ligament of right ankle, initial encounter; S90.511A Abrasion, right ankle, initial encounter; W19.XXXA Unspecified fall, initial encounter; Y93.89 Activity, other specified; F17.200 Nicotine dependence, unspecified, uncomplicated; I10 Essential (primary) hypertension; F32.9 Major depressive disorder, single episode, unspecified; Z79.899 Other long term (current) drug therapy; Z23 Encounter for immunization
CPT/HCPCS: 90471; 90715; 99283

== ENCOUNTER → 2020-02-17 | Outpatient (CLI) | payer OTHER ==
--- NOTE | 2020-02-17 10:04 | ER [facility] ASSESSMENT REPORT ---
Intake - In the Last 14 days Have you traveled outside [place]?: No Have you been in close contact with someone CONFIRMED: Yes Worked in Healthcare?: No - Symptoms Subjective Fever(Louann feverish): No Chills: No Muscule Aches: No Runny Nose: No Sore Throat: No Cough (New or worsening chronic cough): No Shortness of breath: No Nausea or Vomiting: No Headache: No Abdominal Pain: No Diarrhea(3 or more loose stools in last 24 hours): No - Do you have any of the following Chronic lung disease: Asthma or emphysema or COPD: No Cystic Fibrosis: No Diabetes: No High Blood Pressure: Yes Cardiovascular Disease: No Chronic Kidney Disease: No Chronic Liver Disease: No Chronic blood disorder like Sickle Cell Disease: No Weak immune system due to disease or medication: No Neurologic condition that limits movement: No Developmental delay - Moderate to Severe: No Recent (within past 2 weeks) or current : No Morbid Obesity (>100 pounds over ideal weight): Yes - Objective Temperature: 98.4 F Pulse Rate: 75 Respiratory Rate: 18 Blood Pressure: 130/82 O2 Sat by Pulse Oximetry: 94 Objective: Given above, testing performed: If Testing Performed: Test Specimen Type Sent to General - General Information source: Patient Notes: Patient presents to the [facility] for screening for the coronavirus. Patient was exposed to her spouse who tested positive recently. - Related Data Allergies/Adverse Reactions: No Known Allergies Allergy (Verified 11/12/19 06:17) Past Medical History - General Information source: Patient - Social History Smoking Status: Current Every Day Smoker Family History: None - Past Medical History Cardiac Medical History: Reports: Hx Hypertension - on meds Denies: Hx Coronary Artery Disease, Hx Heart Attack Pulmonary Medical History: Denies: Hx Asthma, Hx Bronchitis, Hx COPD, Hx Pneumonia Neurological Medical History: Denies: Hx Cerebrovascular Accident, Hx Seizures Renal/ Medical History: Denies: Hx Peritoneal Dialysis Musculoskeletal Medical History: Denies Hx Arthritis Psychiatric Medical History: Reports: Hx Anxiety, Hx Depression Past Surgical History: Reports: Hx Section - x2, Hx Hysterectomy, Hx Tonsillectomy Physical Exam - Notes Notes: The patient was evaluated during the global Covid 19 pandemic, and that diagnosis was suspected/considered upon their initial presentation. Their evaluation and testing was consistent with current guidelines for patients who present with complaints or symptoms that may be related to Covid 19. Full physical exam could not be performed due to covid 19 isolation protocols. Constitutional: Nontoxic appearance, no acute distress Eyes: Nonicteric, sclera clear Cardiovascular: Heart rate and rhythm regular Respiratory: Breath sounds clear bilaterally, nonlabored breathing, no use of accessory muscles, no tachypnea Gastrointestinal: Abdomen not distended Muculoskeletal: Moves all extremities well Skin: Normal color Neuro: Awake alert oriented, normal speech Psych: Normal mood and affect Diagnostic Results Laboratory Results: Patient presents with exposure worrisome for possible Covid 19. Patient does not have emergency worrying symptoms such as difficulty breathing, shortness of breath, chest pain, pressure, confusion or cyanosis. Patient appears suitable for discharge as vital signs are stable and patient is nontoxic in appearance. Good return precautions have been discussed with patient, patient verbalized understanding and is agreeable with discharge plan of care at this time. Patient Education/Counseling Counseling/Education: Patient was provided with discharge information including: As a person under investigation for Covid 19, the [facility], division of public health advises you to adhere to the following guidance until your test results are reported to you. If your test result is positive, you will receive additional information from your provider and your local health department at that time. Remain at home until you are cleared by the health provider or public health authorities. Keep a log of visitors to your home, notify any visitors to your home of your isolation status. If you plan to move to a new address or leave the county, notify the local health department in your County. Call your doctor or seek care if you have an urgent medical need. Before seeking medical care, call ahead to get instructions from the provider before arriving at the medical office clinic or hospital. Notify them that you are being tested for the virus that causes Covid 19 so that arrangements can be made, as necessary, to prevent transmission to others in the healthcare setting. Next, notify the local health department in your county. If a medical emergency arises and you need to call 911, inform the first responders that you are being tested for the virus that causes Covid 19. Next, notify the local health department in your county. [facility] Discharge - Discharge Clinical Impression: Encounter for screening for COVID-19 Condition: Stable Disposition: Home; Selfcare
[2020-02-17 10:36] VITALS: BP 130/82
== END ==
LOC: RDC 09:53
PROVIDERS: ATTEND Nurse Practitioner Family
DX: Z20.822 Contact with and (suspected) exposure to COVID-19 (principal); I10 Essential (primary) hypertension; E66.01 Morbid (severe) obesity due to excess calories; F17.200 Nicotine dependence, unspecified, uncomplicated
CPT/HCPCS: 87635; C9803; 99202; 99211